=== PATIENT | female | born 1980 | race Caucasian/White ===

== ENCOUNTER → 2022-09-10 13:28 | Outpatient (CLI) | payer OTHER, SELFPAY ==
--- NOTE | 2022-09-10 13:55 | DI.CT.S_ITS ---
PROCEDURE: CT ABDOMEN PELVIS WO CON INDICATIONS: Gross hematuria TECHNIQUE: Noncontrast 5 mm thick sections acquired from the diaphragms to the symphysis. 5 mm coronal and sagittal reformats were then performed. For radiation dose reduction, the following was used: automated exposure control, adjustment of mA and/or kV according to patient size. COMPARISON: [facility], CT, CT KUB, 01/03/2017, 12:39. FINDINGS: Image quality: Excellent. ABDOMEN: Lung bases: Lung bases are clear. Heart size is normal. Solid organs: Liver is normal in size. Gallbladder is not well seen . Pancreas is normal in contours. Spleen is normal in size. No adrenal nodules. Kidneys are normal in size, without hydronephrosis . 2 mm nonobstructing calculus within the left interpolar kidney. Punctate nonobstructing calculus within the superior pole left kidney. 2 mm nonobstructing calculus within the right interpolar kidney. Peritoneum and bowel: Unenhanced bowel loops demonstrate normal wall thickness and caliber. No free fluid or air. Appendix not seen. No evidence of appendicitis. Nodes and vessels: No retroperitoneal or mesenteric adenopathy by size criteria. Aorta and inferior vena cava are normal in caliber. Miscellaneous: No ventral hernias. PELVIS: Genitourinary: Bladder wall thickness is normal. 4 mm calculus within the left posterior urinary bladder. Miscellaneous: No inguinal hernias or adenopathy. Bones: No suspicious bony lesions. No vertebral body compression fractures. IMPRESSION: 1. Nonobstructing bilateral renal calculi. 2. Left posterior urinary bladder calculus. 3. Appendix not seen. No evidence of appendicitis. Dictated by: Kenzie Moncada M.D. on 09/10/2022 at 16:43 Transcribed by: ARAMIS on 09/10/2022 at 16:44 Approved by: Kenzie Moncada M.D. on 09/10/2022 at 16:55
== END ==
PROVIDERS: PCP Student in an Organized Health Care Education/Training Program; Referring Provider Student in an Organized Health Care Education/Training Program; Visit Provider Student in an Organized Health Care Education/Training Program
DX: N20.0 Calculus of kidney (principal); N21.0 Calculus in bladder; R31.0 Gross hematuria; R10.9 Unspecified abdominal pain
CPT/HCPCS: 74176